=== PATIENT | female | born 1950 | race Caucasian/White ===

== ENCOUNTER 2023-04-25 12:34 | Outpatient (CLI) | payer MEDICARE, SELFPAY ==
[2023-04-25 21:00] LABS: Anion Gap 10 mmol/L (8-16); Blood Urea Nitrogen 25 mg/dL (7-17); Calcium 9.5 mg/dL (8.4-10.2); Carbon Dioxide 24 mmol/L (22-30); Chloride 105 mmol/L (98-107); Estimated Glomerular Filt Rate 49; Glucose 132 mg/dL (65-110); Potassium 4.1 mmol/L (3.4-5.0); Sodium 139 mmol/L (137-145)
[2023-04-25 21:57] LABS: Free T4 Free Thyroxine 1.48 ng/mL (0.78-2.19); Vitamin B12 > 1000.0 pg/mL (239-931); Vitamin D 25 Hydroxy 36.8 ng/mL
== END 2023-04-25 12:35 | disposition home or self-care (01) ==
LOC: ANHWCLAB 12:39
PROVIDERS: PCP Nurse Practitioner Family; Visit Provider Nurse Practitioner Family
DX: E78.5 Hyperlipidemia, unspecified (principal); I10 Essential (primary) hypertension; E11.9 Type 2 diabetes mellitus without complications; G62.9 Polyneuropathy, unspecified; E55.9 Vitamin D deficiency, unspecified
CPT/HCPCS: 36415; 80048; 82306; 82607; 84439; 84443

== ENCOUNTER 2023-05-01 14:44 | Outpatient (NON) | payer MEDICARE, SELFPAY ==
[2023-05-01 19:04] LABS: Creatinine Urine 21.8 mg/dL
[2023-05-01 19:31] LABS: MALB Creatinine Ratio < 27.5 mg/g (0-30); Microalbumin Urine Random < 6.0 mg/L (0-16.7)
== END 2023-05-01 14:45 | disposition home or self-care (01) ==
LOC: ANHWCLAB 14:46
PROVIDERS: PCP Nurse Practitioner Family; Visit Provider Nurse Practitioner Family
DX: E78.5 Hyperlipidemia, unspecified (principal); I10 Essential (primary) hypertension; E11.9 Type 2 diabetes mellitus without complications; G62.9 Polyneuropathy, unspecified
CPT/HCPCS: 82043

== ENCOUNTER 2023-07-10 14:30 | Outpatient (RCR) | payer MEDICARE, SELFPAY ==
[2023-04-25 11:11] VITALS: BMI 31.4
[2023-04-25 12:05] VITALS: BMI 31.4
== END 2023-07-22 10:41 | disposition home or self-care (01) ==
LOC: ANHDMC 14:30
PROVIDERS: PCP Nurse Practitioner Family; Visit Provider Internal Medicine Endocrinology, Diabetes & Metabolism
DX: E11.65 Type 2 diabetes mellitus with hyperglycemia (principal); Z71.89 Other specified counseling; Z71.3 Dietary counseling and surveillance
CPT/HCPCS: 97802; G0108; G0109

== ENCOUNTER 2023-08-14 14:30 | Outpatient (RCR) | payer MEDICARE, SELFPAY ==
[2023-07-30 11:08] VITALS: BMI 29.8
[2023-07-30 11:39] VITALS: BMI 29.8
== END 2023-10-28 10:17 | disposition home or self-care (01) ==
LOC: ANHDMC 14:30
PROVIDERS: PCP Nurse Practitioner Family; Visit Provider Internal Medicine Endocrinology, Diabetes & Metabolism
DX: E11.65 Type 2 diabetes mellitus with hyperglycemia (principal); Z71.3 Dietary counseling and surveillance; Z71.89 Other specified counseling
CPT/HCPCS: 97803; G0109

== ENCOUNTER 2023-11-07 14:38 | Outpatient (RCR) | payer MEDICARE, SELFPAY | END 2024-01-27 10:13 | disposition home or self-care (01) | LOC: ANHDMC 14:38 | PROVIDERS: PCP Nurse Practitioner Family; Visit Provider Internal Medicine Endocrinology, Diabetes & Metabolism | DX: E11.65 Type 2 diabetes mellitus with hyperglycemia (principal); Z71.89 Other specified counseling | CPT/HCPCS: G0109 ==

== ENCOUNTER 2024-09-21 08:28 | Outpatient (CLI) | payer MEDICARE, SELFPAY ==
--- OUTSIDE RECORDS SUMMARY | 2024-09-21 08:44 | XMS_ITS | Clinical Summary ---
Author Organization [facility] Address [address] [place] [address] Care Team Providers Care Work Environment Safety Inspector Name Role Phone Essence Burciaga NP Primary Care Provider [phone] Cely Garsia DO Unavailable [phone] Allergies Active Allergy Reactions Criticality Noted Date Comments Egg Diarrhea Low 09/22/2018 Sulfa (Sulfonamide Antibiotics) Rash Medium 05/2021 Medications glipiZIDE (GLUCOTROL) 5 mg tablet Take 0.5 tablets (2.5 mg total) by mouth 2 (two) times a day before breakfast and lunch Active multivit-min/iron/ folic acid/K (ADULTS MULTIVITAMIN ORAL) Take 1 tablet by mouth daily Active cholecalciferol (VITAMIN D-3) 1,000 unit tablet Take 1 tablet (1,000 Units total) by mouth daily Active linaGLIPtin (TRADJENTA) 5 mg tabletIndications: type 2 diabetes mellitus 1 tablet (5 mg total) daily Active metFORMIN (GLUCOPHAGE) 500 mg tablet Take 1 tablet (500 mg total) by mouth daily with breakfast Active hydroCHLOROthiazid e (HYDRODIURIL) 12.5 mg tablet Take 1 tablet (12.5 mg total) by mouth daily 90 tablet 3 3 Active amLODIPine (NORVASC) 2.5 mg tablet Take 1 tablet (2.5 mg total) by mouth daily 90 tablet 3 3 Active atorvastatin (LIPITOR) 20 mg tablet Take 1 tablet (20 mg total) by mouth daily 90 tablet 3 3 Active carvediloL (COREG) 25 mg tablet Take 1 tablet (25 mg total) by mouth 2 (two) times a day 180 tablet 3 3 Active clopidogreL (PLAVIX) 75 mg tablet Take 1 tablet (75 mg total) by mouth daily 90 tablet 3 3 Active ezetimibe (ZETIA) 10 mg tabletIndications: Mixed hyperlipidemia Take 1 tablet (10 mg total) by mouth daily 90 tablet 3 3 Active losartan (COZAAR) 100 mg tabletIndications: Mixed hyperlipidemia Take 1 tablet (100 mg total) by mouth daily 90 tablet 3 3 Active potassium chloride ER (KLOR-CON) 10 mEq CR tablet Take 1 tablet/capsul e (10 mEq total) by mouth daily 90 tablet/capsu le 3 3 Active icosapent ethyL (VASCEPA) 1 gram capsuleIndications :Mixed hyperlipidemia Take 2 capsules (2 g total) by mouth 2 (two) times a day 360 capsule 3 3 Active Active Problems Problem Noted Date Diagnosed Date Postmenopausal bleeding 09/05/2021 Mixed hyperlipidemia 04/06/2019 Paroxysmal supraventricular tachycardia 08/31/19 18 Coronary artery disease invo lving [place] coronary artery of [place] heart without angina pectoris 01/24/2017 Overview (09/17/2018): Status post PTCA with a stent placement in left anterior descending artery. Essential hypertension 01/21/2017 History of placement of stent in LAD coronary ar phylicia 01/21/2017 Pure hypercholesterolemia 01/21/2017 Type 2 diabetes mellitus wit hout complication, without long-term current use of insulin 01/21/2017 Surgical History Surgery Date Site/Laterality Comments CORONARY ANGIOPLASTY 01/14/2017 CARDIAC CATHETERIZATION 01/14/2017 Medical History Medical History Date Comments Hypertension Hyperlipidemia Coronary artery disease GERD (gastroesophageal reflux disease) Type 2 diabetes mellitus (HCC) Family History Medical History Relation Name Comments Heart attack Father Relation Name Status Comments Father Social History Tobacco Use Types Packs/Day Years Used Date Smoking Tobacco: Never Smokeless Tobacco: Never Alcohol Use Standard Drinks/Week Comments Never 0 (1 standard drink = 0.6 oz pur e alcohol) AUDIT-C Answer Date Recorded Q1: How often do you have a drink containing alcohol? Never 09/05/2021 Q2: How many drinks containi ng alcohol do you have on a typical day when you are drinking? Patient does not drink Q3: How often do you have si x or more drinks on one occasion? Never 09/05/2021 Comments No Sex and Gender Information Value Date Recorded Sex Assigned at Not on file Legal Sex Female 7:21 PM LIBRARY ATTENDANT Gender Identity Not on file Sexual Orientation Not on file Obstetrics History Last Filed Vital Signs Vital Sign Reading Time Taken Comments Blood Pressure 142/80 03/20/2023 2:53 PM LIBRARY ATTENDANT Pulse 75 03/20/2023 2:53 PM LIBRARY ATTENDANT Temperature 36.7 C (98.1 F) 09/07/2021 7:47 AM CDT Respiratory Rate 18 09/07/2021 7:47 AM CDT Oxygen Saturation 97% 03/20/2023 2:53 PM LIBRARY ATTENDANT Inhaled Oxygen Concentration - - Weight 83.9 kg (185 lb) 03/20/2023 2:53 PM LIBRARY ATTENDANT Height 162.6 cm (5' 4) 03/20/2023 2:53 PM LIBRARY ATTENDANT Body Mass Index 31.76 03/20/2023 2:53 PM LIBRARY ATTENDANT Plan of Treatment Health Maintenance Due Date Last Done Comments Breast Cancer Screening-Mammogram 1952 Colon Cancer Screening-Colonoscopy 1950 Depression Screening 1952 Hepatitis C Screening 1952 Dilated Eye Exam 1952 Foot Exam 1952 Hepatitis B Screening 1970 Well Visit 65+ 2017 Osteoporosis Screening-Bone Density Scan 05/07/2019 05/07/2017 Zoster Vaccine (2 of 2) 03/21/2021 01/24/2021 Fall Risk Assessment 09/07/2022 09/07/2021 Albumin Creatinine Ratio, Urine 12/11/2022 Hemoglobin A1C 09/11/2023 03/13/2023, 05/24, 12/11/2021, Additional history exists Covid-19 Vaccine (2023-2 5 season) 2023 05/01/2021, 06/24/2020, 05/27/2020 Lipid Panel 03/13/2024 03/13/2023, 05/24, 12/11/2021, Additional history exists eGFR 03/13/2024 03/13/2023, 06/21, 06/18/2022, Additional history exists Influenza Vaccine (Season Ended) 2024 02/26/2022, 03/22/2020, 03/22/2020, Additional history exists DTaP/Tdap/Td Vaccine (2 - Td or Tdap) 02/26/2026 02/27/2016 Pneumococcal vaccine 65+ Completed 05/07/2017, 10/2015 Medical Devices Implanted Type Area Middleware Consultant Device Identifier Shelf Expiration Date Model / Serial / Lot Stent N/A: Heart Procedures Procedure Name Priority Date/Time Associated Diagnosis Comments EGFR Routine 03/13/2023 9:02 AM LIBRARY ATTENDANT Essential hypertension HEMOGLOBIN A1C Routine 03/13/2023 9:02 AM LIBRARY ATTENDANT Type 2 diabetes mellitus without complication, without long-term current use of insulin (HCC) LIPID PANEL Routine 03/13/2023 9:02 AM LIBRARY ATTENDANT Mixed hyperlipidemia ALBUMIN CREATININE RATIO, URINE Routine 12/11/2021 9:12 AM CDT from Last 3 Months or Most Recently Relevant to Health Maintenance Results * eGFR (03/13/2023 9:02 AM LIBRARY ATTENDANT) eGFR 49 mL/min/1. 73 m2 JIMENEZ WEBSTER Comment: Interpretive Data Reference Interval Normal >/= 90 mL/min/1.73m2 Mildly decreased* 60 - 89 mL/min/1.73m2 Mildly to moderately decreased 45 - 59 mL/min/1.73m2 Moderately to severely decreased 30 - 44 mL/min/1.73m2 Severely decreased 15 - 29 mL/min/1.73m2 Kidney Failure < 15 mL/min/1.73m2 *Relative to young adult level Estimated glomerular filtration rate is determined by the 2020 CKD-EPI equation recommended by the National Kidney Foundation (A Unifying Approach to GFR Estimation: Recommendations of the NKF-ASK Task Force on Reassessing the Inclusion of Race in Diagnosing Kidney Disease, JASN 2020). The CKD-EPI equation should not be used for patients with unstable renal function and has not been validated in children and those over 70. Current interpretive data was last reviewed 2021. Testing performed by: [address] [address] Blood 03/13/2023 9:02 AM LIBRARY ATTENDANT 03/13/2023 9:29 AM LIBRARY ATTENDANT Ambrocio Martínez MD LAB BLOOD ORDERABLES Fi nal Result Performing Organization Address [facility] Co de Phone Number [address] [place] [address] * (ABNORMAL) Hemoglobin A1c (03/13/2023 9:02 AM LIBRARY ATTENDANT) Hgb A1C 10.3(H) 4.0 - 5.6 % JIMENEZ Comment:Testing performed by : [address] [address] Estimated Average Glucose 249 mg/dL JIMENEZ Comment: The ADA recommends reporting an estimated Average Glucose (eAG) with all Hemoglobin A1c results using the equation derived from a study of 507 normal and diabetic adults. Minority populations were underrepresented and children were not included. (Diabetes Care 31:8569-0890, 2008). The eAG is not equivalent to a fasting glucose. Testing performed by: [address] [address] Blood 03/13/2023 9:02 AM LIBRARY ATTENDANT 03/13/2023 9:29 AM LIBRARY ATTENDANT Ambrocio Martínez MD LAB BLOOD ORDERABLES Fi nal Result Performing Organization Address [facility] Co de Phone Number [facility] [address] [facility] [place] [address] * (ABNORMAL) Lipid panel (03/13/2023 9:02 AM LIBRARY ATTENDANT) Pathologist [facility] [place] Cholesterol 132 30 - 199 mg/dL JIMENEZ Comment: Interpretive Data Ages < or = 19 years Acceptable: <170 mg/dL Borderline high: 170-199 mg/dL High: >or= 200 mg/dL Ages > or = 20 years Desirable: <200 mg/dL Borderline high: 200-239 mg/dL High: >or= 240 mg/dL Literature References: 1. Expert Panel on Integrated Guidelines for Cardiovascular Health and Risk Reduction in Children and Adolescents. Pediatrics 2011;128:S213 2. NCEP Expert Panel. Circulation 2004;110:227 Current Interpretive Data was last revised on 2017. Testing performed by: [address] [address] Triglycerides 382(H) <=149 mg/dL JIMENEZ Comment: Interpretive Data Ages < or = 9 years Acceptable: <75 mg/dL Borderline high: 75-99 mg/dL High: >or= 100 mg/dL Ages 10 to 20 years Acceptable: <90 mg/dL Borderline high: 90-129 mg/dL High: >or= 130 mg/dL Ages > or = 20 years Desirable: <150 mg/dL Borderline high: 150-199 mg/dL High: 200-499 mg/dL Very high: >or= 499 mg/dL Literature References: 1. Expert Panel on Integrated Guidelines for Cardiovascular Health and Risk Reduction in Children and Adolescents. Pediatrics 2011;128:S213 2. NCEP Expert Panel. Circulation 2004;110:227 Current Interpretive Data was last revised on 2017. Testing performed by: [address] [address] HDL 37(L) >=40 mg/dL JIMENEZ Comment: Interpretive Data Ages < or = 19 years Acceptable: >45 mg/dL Borderline low: 40-45 mg/dL Low: <40 mg/dL Ages > or = 20 years Desirable: >or= 60 mg/dL Low: <40 mg/dL Literature References: 1. Expert Panel on Integrated Guidelines for Cardiovascular Health and Risk Reduction in Children and Adolescents. Pediatrics 2011;128:S213 2. NCEP Expert Panel. Circulation 2004;110:227 Current Interpretive Data was last revised on 2017. Testing performed by: [address] [address] LDL, calculated 19 <=129 mg/dL JIMENEZ Comment: Interpretive Data Ages < or = 19 years Acceptable: <110 mg/dL Borderline high: 110-129 mg/dL High: >or= 130 mg/dL Ages > or = 20 years Optimal: <100 mg/dL Near optimal: 100-129 mg/dL Borderline high: 130-159 mg/dL High: >160 mg/dL Literature References: 1. Expert Panel on Integrated Guidelines for Cardiovascular Health and Risk Reduction in Children and Adolescents. Pediatrics 2011;128:S213 2. NCEP Expert Panel. Circulation 2004;110:227 Current Interpretive Data was last revised on 2017. Testing performed by: [address] [address] Non-HDL Cholesterol 95 mg/dL JIMENEZ Comment: Interpretive Data Ages < or = 19 years Acceptable: <120 mg/dL Borderline high: 120-144 mg/dL High: >145 mg/dL Ages > or = 20 years When triglycerides are >200 mg/dL, Non-HDL cholesterol is a secondary target of therapy with treatment goals that are 30 mg/dL greater than the LDL cholesterol target. Literature References: 1. Expert Panel on Integrated Guidelines for Cardiovascular Health and Risk Reduction in Children and Adolescents. Pediatrics 2011;128:S213 2. NCEP Expert Panel. Circulation 2004;110:227 Current Interpretive Data was last revised on 2017. Testing performed by: [address] [address] Chol/HDL ratio 4 JIMENEZ Comment:Testing performed by : [address] [address] Blood 03/13/2023 9:02 AM LIBRARY ATTENDANT 03/13/2023 9:29 AM LIBRARY ATTENDANT Narrative JIMENEZ - 03/13/2023 10:18 AM LIBRARY ATTENDANT Has the patient been fasting for 8 hours or more?->Yes us Ambrocio Martínez MD LAB BLOOD ORDERABLES Fi nal Result JIMENEZ [address] [facility] [place] [address] * Albumin Creatinine Ratio, Urine (12/11/2021 9:12 AM CDT) Albumin Ur <12.0 mg/L JIMENEZ WEBSTER Comment: Interpretive Data No reference range established. Current interpretive data was last revised 2018. Testing performed by: [address] [address] Creatinine Ur 62.9 mg/dL JIMENEZ WEBSTER Comment: Interpretive Data No reference range established. Current interpretive data was last revised 2018. Testing performed by: [address] [address] Albumin Creatinine Ratio, Ur <19 1 - 29 mg/g JIMEENZ WEBSTER Comment:Testing performed by : [address] [address] Urine 12/11/2021 9:12 AM CDT 12/11/2021 9:22 AM CDT Ava Landaverde APRN LAB URINE ORDERABLES Joanne dey Result [facility] [address] [facility] [place] [address] from Last 3 Months or Most Recently Relevant to Health Maintenance Insurance [employer] [facility] MEDICARE ADVANTAGE [employer] Advance Directives For more information, please contact: [phone] * Full Code (Latest Code Status on File) Date Activated Date Inactivated Comments 09/05/2021 5:51 PM 09/07/2021 1:11 PM Healthcare Agents on File Name Relationship Healthcare Agent Relationshi p Communication Gerry Hoover-Kam Spouse Health Care Agent Care Teams Work Environment Safety Inspector Relationship Specialty Start Date End Date Essence Burciaga NP [place], [place] [id number] PCP - General Nurse Practitioner 08/19/20 Cely Garsia DO [facility] [place] [address] Consulting Physician Obstetrics and Gynecology 09/07/21
--- OUTSIDE RECORDS SUMMARY | 2024-09-21 08:44 | XMS_ITS | Data Portability ---
Author Organization [facility] SARIKA [place] Address [address] [place] [address] Care Team Providers Care Buttermilk Drier Operator Name Role Phone NEVAEH CROSS Primary Care Provider [phone] Assessment Encounter Date Assessment Date Assessment LastModified by Organization Details LastModified Time 01/07/2018 01/07/2018 get your flu shot at [facility] Not available 01/07/2018 10:17:38 Plan of Treatment Reminders Order Date Submit Date Provider Last Modified By Organization Details Last Modified Time Details Appointments None recorded. Lab HbA1c (hemoglobi n A1c), blood 2019 020 PAGE Not available 0 13:42:29 noninvasiv e colorectal cancer DNA + occult blood screening, stool 2018 019 [facility] (Cologuard Orders Only), [address], [place], [address], 9 11:40:20 HbA1c (hemoglobi n A1c), blood 2018 019 [facility] Not available 9 13:05:12 lipid panel, serum 2018 019 PAGE Not available 9 14:04:46 BMP, serum or plasma 2018 019 [facility] Not available 9 13:05:13 TSH, serum or plasma 2017 018 PAGE Not available 8 12:19:27 HbA1c (hemoglobi n A1c), blood 2017 018 PAGE Not available 8 17:35:49 CMP, serum or plasma 2017 018 lenglema Not available 8 12:23:18 Referral None recorded. Procedures None recorded. Surgeries None recorded. Imaging MAMMO, screening, digital, bilateral 2019 020 [facility] Not available 0 19:52:37 MAMMO, screening, bilateral 2018 019 [facility] Not available 9 13:54:02 MAMMO, screening, bilateral 2017 018 ttonnies Not available 8 17:45:59 DEXA 2017 018 ttonnies Not available 8 18:10:20 Medication Orders Glucophage XR 500 mg tablet,ext ended release 2019 020 [facility], [address] [place] [address], [address], 0 12:50:29 glipizide ER 5 mg 24 hr tablet,ext ended release 2018 019 [facility], [address] [place] [address], [address], 0 11:04:28 Januvia 100 mg tablet 2018 019 [facility], [address] [place] [address], [address], 9 10:47:51 carvedilol 25 mg tablet 2018 019 [place] [address], [address] [place] [address], [address], 9 15:22:55 capsaicin 0.1 % topical cream 2017 018 [facility] Not available 9 10:47:37 Glucophage XR 500 mg tablet,ext ended release 2017 018 [facility], [address] [facility], [place], [address], 8 10:20:22 glipizide 10 mg tablet 2017 018 magne1 [facility] 1418, [address], [address], 9 15:29:12 Glucophage XR 500 mg tablet,ext ended release 2017 018 INTERFACE [facility] 1418, [address], [address], 8 11:32:19 OneTouch Ultra Test strips 2017 018 [facility]18, [address], [address], 8 11:32:18 atorvastat in 80 mg tablet 2017 018 [facility] [address], [address], 0 11:04:02 Patient TargetsNo targets recorded. Patient Instructions Encounter Date Encounter Id Patient Instructions Last Modified By Organization Details Last Modified Time 10/12/2019 [id number] not a requiremen t to take a probiotic-- not having effect of metformin Not available 10/12/2019 12:43:39 Reason for Referral None Reported. Results Created Date Observation Date Name Description Value Unit Range Abnormal Flag Note LastModifiedBy Organization Detail LastModifiedTime Result Notes None recorded. Problems Name Problem SNOMED Code Status Onset Date Resolution Date Notes Provider Name and Address Organization Details Recorded Time Neuropat hy due to diabetes mellitus 251321569 Active 2014 Location : None;Sev erity: Moderate ;Progres s: Stable;A dded By: Nevaeh Cross;Add to Current Problems : YES Not Available [facility] 7 09:52:12 Pure hypercho lesterol emia 700027153 Active 2015 Location : None;Sev erity: Moderate ;Progres s: Stable;A dded By: Abelardo Suggs ;Add to Current Problems : YES Not Available [facility] 7 09:52:12 Type 2 diabetes mellitus without complica tion 287486964 Active 2014 Location : None;Sev erity: Moderate ;Progres s: Stable;A dded By: Archana Can;Add to Current Problems : YES Not Available [facility] 7 09:52:12 [facility] 93079905 Active 2014 Location : None;Sev erity: Moderate ;Progres s: Stable;A dded By: Archana Can;Add to Current Problems : YES Not Available [facility] 7 09:52:12 Thyroid disorder screenin g Completed 201506/27/2015 Location : None;Sev erity: Moderate ;Progres s: Stable;A dded By: Kiana Alfaro;Add to Current Problems : NO Not Available [facility] 7 09:52:12 Screenin g for disorder Completed 201501/29/2017 Location : None;Sev erity: Moderate ;Progres s: Stable;A dded By: Kiana Alfaro;Add to Current Problems : NO Nevaeh Cross MD Attn: [place], [address] , [facility] 7 17:06:23 Hyperlip idemia screenin g Active 2015 Location : None;Sev erity: Moderate ;Progres s: Stable;A dded By: Shruthi Roe i;Araceli dd to Current Problems : YES Not Available [facility] 7 09:52:12 Long-ter m drug therapy Active 2015 Location : None;Sev erity: Moderate ;Progres s: Stable;A dded By: Shruthi Roe i;A dd to Current Problems : NO Not Available [facility] 7 09:52:12 Coronary atherosc lerosis 936350857 Active 2016 with stent LAD Nevaeh Cross MD Attn: Accounting ,[address] [place], [address] , [facility] 7 17:06:48 Problem Notes None recorded. Procedures Surgical History Date Name Laterality Status Provider Name and Address Organization Details Recorded Time 7 Angioplasty With Stent completed Nevaeh Cross MD Attn: Accounting,[address] [place], [address], [facility] 01/29/2017 17:05:18 9 biopsy of breast completed Nevaeh Cross MD Attn: Accounting, [address] [place], [address], [facility] 03/16/2019 11:14:17 Imaging Results None recorded. Procedure Notes None recorded. Medical Equipment None Reported. Allergies Allergen ID Allergen Name Allergen Category Reaction Reaction Severity Criticality Documentation Date Start Date Code Code System Note Provider Name and Address Organization Details Recorded Time 55227 egg extract food,medi cation Not available Not available Not available 02/27/2016 25169 15 RxNorm Nevaeh Cross MD Attn: [employer],[address] [facility], [place], [address], [facility] 6 11:47:40 Medications Name Sig Start Date Stop Date Status Note LastModified by Organization Details LastModified Time clopidogre l 75 mg tabs 10/11 completed Not Available Not Available Not Available repatha sureclick 140 mg/ml soaj active Not Available Not Available Not Available losartan potassium 100 mg tabs 10/11 completed Not Available Not Available Not Available glipizide xl 5 mg tb24 one daily 11/14 completed Not Available Not Available Not Available vascepa 1 gm caps 10/11 completed Not Available Not Available Not Available metformin hydrochlor trav er 500 mg tb24 10/11 completed Not Available Not Available Not Available atorvastat in calcium 80 mg tabs 10/11 completed Not Available Not Available Not Available ezetimibe 10 mg tabs 10/11 completed Not Available Not Available Not Available carvedilol 25 mg tabs 10/11 completed Not Available Not Available Not Available pioglitazo ne 15 mg tablet Take 1 tablet(s ) by mouth daily 11/13 completed new start;R xNorm: 598473; Allow Substit ution: True Not Available Not Available Not Available atorvastat in 40 mg tablet Take 1 tablet every day by oral route. active Not Available Not Available No t Available metformin 500 mg tablet 1 tablet by mouth BiD 04/28 completed RxNorm: 738117; Allow Substit ution: True Not Available Not Available Not Available atorvastat in 80 mg tablet TAKE 1 TABLET BY MOUTH ONCE DAILY 10/11 completed Not Available Not Available Not Available carvedilol 25 mg tablet Take 1 tablet twice a day by oral route. active Not Available Not Available No t Available carvedilol 12.5 mg tablet Take 1 tab po bid 09/18 completed Not Available Not Available Not Available metoprolol succinate ER 50 mg tablet,ext ended release 24 hr 01/07 completed Not Available Not Available Not Available glipizide 10 mg tablet TAKE 1 TABLET BY MOUTH BEFORE BREAKFAS T 09/18 completed Not Available Not Available Not Available glipizide ER 5 mg tablet, extended release 24 hr Take 1 tablet by mouth once daily 2020 active Not Available Not Available Not Avai lable metformin 850 mg tablet Take 1 tablet(s ) by mouth daily 07/09 completed dose change- - not needed - make change in profile ;RxNorm : 978776; Allow Substit ution: True Not Available Not Available Not Available amlodipine 2.5 mg tablet 01/07 completed Not Available Not Available Not Available clopidogre l 75 mg tablet Take 1 tablet every day by oral route in the morning. active Not Available Not Available No t Available amlodipine 5 mg tablet 01/07 completed Not Available Not Available Not Available aspirin 81 mg tablet,del ayed release Take one tablet PO daily 2014 active RxNorm: 040601; Allow Substit ution: True Not Available Not Available Not Available losartan 100 mg-hydroch lorothiazi de 25 mg tablet Take 1 tablet(s ) by mouth daily 05/07 completed Not Available Not Available Not Available lancets check glucose daily and as needed 10/01 completed Allow Substit ution: True Not Available Not Available Not Available OneTouch Ultra Test strips To test bs once daily 2017 active Not Available Not Available Not Avai lable Glucophage XR 500 mg tablet,ext ended release 1 tab in am and 2 tabs by mouth daily in the evening 2019 active Not Available Not Available Not Avai lable Blood Glucose Test Strips check blood glucose daily and as needed 05/05 completed Allow Substit ution: True Not Available Not Available Not Available hydrochlor othiazide 25 mg tablet 01/07 completed Not Available Not Available Not Available pioglitazo ne 30 mg tablet Take 1 tablet every day by oral route. 05/07 completed Not Available Not Available Not Available losartan 100 mg tablet Take 1 tab po daily active Not Available Not Available No t Available ezetimibe 10 mg tablet one daily active Not Available Not Available No t Available metformin ER 1,000 mg tablet,ext ended release 24hr (osmotic) Take 1 tablet every day by oral route. 11/13 completed Not Available Not Available Not Available capsaicin 0.1 % topical cream Apply 1 applicat ion 3 times a day by topical route as needed. 03/16 completed Not Available Not Available Not Available Januvia 100 mg tablet Take 1 tablet every day by oral route. 03/16 completed Not Available Not Available Not Available glipizide ER 5 mg 24 hr tablet,ext ended release Take 1 tablet(s ) every day by oral route. 10/11 completed Not Available Not Available Not Available OneTouch Delica Lancets 33 gauge active Not Available Not Available Not Available Brilinta 90 mg tablet Take 1 tab po bid 09/18 completed Not Available Not Available Not Available Vascepa 1 gram capsule active Not Available Not Available Not Available Repatha SureClick 140 mg/mL subcutaneo us pen injector active Not Available Not Available Not Available OneTouch Ultra Blue Test Strip active Not Available Not Available N ot Available Vitals Date Recorded Body height Body mass index (BMI) Body weight Oxygen saturation Oxygen saturation in Arterial blood by Pulse oximetry Heart rate Systolic blood pressure Diastolic blood pressure Provider Name and Address Organization Details Last Updated DateTime 8 160.02 cm 28.4 kg/m2 72865.5 3 g 97 % 97 % 74 /min 130 mm[Hg] 72 mm[Hg] Sabi waggoner [facility] 8 11:01:51 Date Recorded Body height Oxygen saturation Oxygen saturation in Arterial blood by Pulse oximetry Heart rate Body mass index (BMI) Body weight Systolic blood pressure Diastolic blood pressure Provider Name and Address Organization Details Last Updated DateTime 9 160.02 cm 96 % 96 % 72 /min 32.1 kg/m2 54601.2 2 g 152 mm[Hg] 80 mm[Hg] Bertha Fosson [facility] 9 15:00:48 Date Recorded Body height Body mass index (BMI) Body weight Body temperature Oxygen saturation Oxygen saturation in Arterial blood by Pulse oximetry Heart rate Systolic blood pressure Diastolic blood pressure Provider Name and Address Organization Details Last Updated DateTime 8 160.02 cm 31.3 kg/m2 99452.0 6 g 98.5 [degF] 97 % 97 % 82 /min 136 mm[Hg] 86 mm[Hg] Shruthi Amor ma [facility] 8 09:42:26 Date Recorded Body height Body mass index (BMI) Body weight Body temperature Oxygen saturation Oxygen saturation in Arterial blood by Pulse oximetry Heart rate Systolic blood pressure Diastolic blood pressure Provider Name and Address Organization Details Last Updated DateTime 9 160.02 cm 31.4 kg/m2 83371.6 5 g 98.6 [degF] 94 % 94 % 74 /min 136 mm[Hg] 70 mm[Hg] Finn Echeverria MA [facility] 9 10:47:07 Social History Question Answer Notes LastModified by Organizat ion Details LastModified Time Tobacco Smoking Status Never Smoker Pham maharaj [facility] 02/27/2016 11:33:00 What Was The Date Of Your Most Recent Tobacco Screening? 01/07/2018 Information n ot available 11/13/2018 Sex: Unknown Functional Status None recorded. Mental Status None recorded. Family History Relationship Description Onset Age of this Age Resolved Age Notes LastModified by Organization Details LastModified Time Father Diabetes mellitus hreedma Not available 2015 11:33:09 Father Aortic aneurysm ssadlowskima Not available 09:16:30 Father Hypertensive disorder ssadlowskima Not available 09:16:37 Mother Hypertensive disorder ssadlowskima Not available 09:16:49 Paternal Grandfather Diabetes mellitus ssadlowskima Not available 09:16:57 Paternal Grandmother Diabetes mellitus ssadlowskima Not available 09:17:05 Maternal Grandfather Diabetes mellitus ssadlowskima Not available 09:17:12 Maternal Grandmother Monitoring of pacemaker ssadlowskima Not available 01/18/2017 09:17:29 Maternal Grandmother Diabetes mellitus ssadlowskima Not available 09:17:38 Medical History Condition Response High Blood Pressure Y High Cholesterol Y Diabetes Y Heart Disease Y Gynecological History Statement/Question Response Menses Monthly N Obstetrics History GPAL:G 0 P 0 0 0 0 Immunizations Vaccine Type Date Status Note Provider Nam e and Address Organization Details Recorded Time Tdap 6 completed Not Available [facility] 05/09/2019 02:32:58 Pneumococcal conjugate PCV 13 6 completed Not Available [facility] 05/09/2019 02:45:28 pneumococcal polysaccharide PPV23 8 completed Not Available [facility] 05/09/2019 02:42:30 Past Encounters Encounter ID Performer Location Encounter Start Date Encounter Closed Date Diagnosis/Indication Diagnosis SNOMED-CT Code Diagnosis ICD10 Code Diagnosis Note [id number] Nevaeh Cross MD [facility] [address] [facility] [place] [address] 02/23/2016 10:40:47 02/28/2016 12:11:34 Essential hypertension 64869053 I10 Hyperlipidemia 75428693 E78.5 Diabetes mellitus 847647 09 E11.9 [id number] Nevaeh Cross MD [facility] [address] [place] [address] 02/27/2016 11:13:42 03/01/2016 10:32:23 Type 2 diabetes mellitus 19928017 E11.42 dose change and formulatio n change of metformin- - diarrhea before Administra tion of pneumococcal vaccine 84383698 Z23 Administra tion of diphtheria, pertussis, and tetanus vaccine 206464537 Z23 Hypercholesterolemia 136 11446 E78.2 start atorvastat in for lipids to goal for DM. Stop Butter adn chavira [id number] Nevaeh Cross MD [facility] [address] [place] [address] 07/04/2016 09:41:10 07/04/2016 18:40:15 Hyperlipidemia 22853904 E78.5 Long-term drug therapy 847018440 Z79.899 Diabetes mellitus 024469 09 E11.9 [id number] Nevahe Cross MD [facility] [address] [place] [address] 07/09/2016 12:02:04 07/09/2016 14:08:37 Type 2 diabetes mellitus without complication 041495805 E11.9 advise to get work out or accountabi lity partner for exercise and diet Type 2 deisy betes mellitus 32965660 E11.42 increase the Actos to 30 mg a day Essential hypertension 88944380 I10 Hypercholesterolemia 136 [address]69[address] E78.2 increase the atorvastat in for lipids to goal for DM. Stop Butter and chavira [id number] Nevaeh Cross MD [facility] [address] [place] [address] 11/13/2016 09:15:27 11/13/2016 16:54:16 Type 2 diabetes mellitus 18893183 E11.42 Hypercholesterolemia 136 47874 E78.2 Administra tion of viral vaccine 12323187 Z23 Screening for malignant neoplasm of breast 098697572 Z12.31 Gynecologi c examination 73764235 Z01.041 [id number] Nevaeh Cross MD [facility] [address] [place] [address] 11/09/2016 09:48:55 11/09/2016 14:35:41 Type 2 diabetes mellitus without complication 134706630 E11.9 [id number] Nevaeh Cross MD [facility] [address] [place] [address] 05/07/2017 10:46:40 05/07/2017 17:45:59 Type 2 diabetes mellitus without complication 718316933 E11.9 cont with regular exercise Essential hypertension 79608573 I10 Hypercholesterolemia 136 99915 E78.2 Screening for malignant neoplasm of colon 836743145 Z12.11 Screening for malignant neoplasm of breast 262723384 Z12.39 Menopause present 584285 006 N95.1 Administra tion of pneumococcal vaccine 25732533 Z23 update-- I advised Flu shot but since we are currently out of supply-- to check with cardiologi st for this Type 2 deisy betes mellitus 02895655 E11.42 no med change and cont exercise as outlined by patient [id number] Nevaeh Cross MD [facility] [address] [facility] [place] [address] 01/07/2018 09:36:47 01/08/2018 09:06:39 Type 2 diabetes mellitus without complication 393629247 E11.9 cont with dietary changes and increase the exercise and weight loss Essential hypertension 05588044 I10 BP is doing fine-- cont low salt and to lose weight Diabetic p eripheral neuropathy 611390779 E11.40 call if no effective of trial of capsaiscin to order a trial of lidocaine cream for this complaint- - you wish to avoid oral agents for management however report limitation in activity related to the foot neuropathy burning sensation. Order the diabetic shoes Weight gain 5342452 R63. 5 Administra tion of viral vaccine 97489071 Z23 discussed and will check with Racheal [id number] Nevaeh Cross MD [facility] [address] [facility] [place] [address] 09/18/2018 14:33:21 09/18/2018 15:48:45 Type 2 diabetes mellitus without complication 692579717 E11.9 cont with dietary changes and increase the exercise and resetablis h weight loss-- decrease the GLIPIZIDE and start taking JANUVIA Essential hypertension 70914131 I10 BP is doing fine-- cont low salt and to lose weight-- dose increase of the carvedilol Diabetic p eripheral neuropathy 282917718 E11.40 call if no effective of trial of capsaiscin to order a trial of lidocaine cream for this complaint- - you wish to avoid oral agents for management however report limitation in activity related to the foot neuropathy burning sensation. Order the diabetic shoes [id number] Nevaeh Cross MD [facility] [address] [facility] [place] [address] 03/16/2019 10:24:49 03/16/2019 13:54:02 Essential hypertension 23720928 I10 BP is doing fine-- cont low salt and to lose weight Type 2 deisy betes mellitus without complication 608438887 E11.9 cont with dietary changes and increase the exercise and re- establish weight loss-- Neuropathy due to diabetes mellitus 806309325 E11.40 Screening for malignant neoplasm of breast 471754054 Z12.31 you are given an order for this test Screening for malignant neoplasm of colon 995921285 Z12.11 Administra tion of influenza vaccine 96031408 Z23 we discussed trying to get special order for the preservati ve free FLu shot given egg allergy [id number] Nevaeh Cross MD [facility] [address] [facility] [place] [address] 10/12/2019 10:53:55 10/12/2019 19:52:37 Type 2 diabetes mellitus without complication 397217257 E11.9 will increase METORMIN ER dose to 1 in am and 2 in evening Pure hypercholesterolemia 159274890 E78.[address] Clements with med adjustment adn starting REPATHA per his note Screening mammography 24 719747 Z12.31 ordered -- and testing strongly encouraged Screening for malignant neoplasm of colon 938193661 Z12.11 has the fecal kit kit and needs to complete this test. Note that if concern for NDMA contaminat ion-- then GI associatio n is the area of concern Health Concerns Section Related Observation LastModified by Organization Detai ls LastModified Time None Recorded Concern Status LastModified by Organization Details LastModified Time None Recorded Advance Directives Directive None Recorded Payers Encounter Date Sequence Insurance Name Policy Number Policy Stanley Covered Member ID Stanley Member ID Guarantor Name 05/07/2017 2 [employer] - DOS PRIOR TO 20 - [facility] BENEFITS PLAN [id number] Apple Orosco [place] [id number] Apple Humphrey 05/07/2017 1 [place] [employer] [place] [id number] Apple Humphrey 01/07/2018 2 [employer] - DOS PRIOR TO 20 - [facility] BENEFITS PLAN [id number] Apple Orosco [place] [id number] Apple Reyesus 01/07/2018 1 [place] [id number] Apple Reyesus 09/18/2018 1 [facility] (MEDICARE REPLACEMENT/A DVANTAGE - PPO) [id number] Apple Reyesus [id number] Apple Reyesus 03/16/2019 1 [facility] (MEDICARE REPLACEMENT/A DVANTAGE - PPO) [id number] Apple Reyesus [id number] Apple Reyesus 10/12/2019 1 [facility] (MEDICARE REPLACEMENT/A DVANTAGE - PPO) [id number] Apple Reyesus [id number] Apple Reyesus Notes Date Note Type Note Provider Name and Address Organization Details Recorded Time 8 text/html Diabetes F/UReported bypatient.Labs:last A1C result: 6.8; 05/04/17 Context:seeing eye doctor regularly; checking feet regularly; taking aspirin daily; not missing doses of medications Associated Symptoms:no dizziness; no confusion; no increased thirst; no increased appetite; no increased urination;weight loss (9 lbs);headaches;numbness of feet; headaches may be sinus related. Nevaeh Cross MD Attn: Accounting,[address] [place] [address], [address], [facility] 05/07/2017 11:41:09 8 text/html Diabetes F/UReported bypatient.Labs:last A1C result: 7.1 (01/01/18) Context:seeing eye doctor regularly; checking feet regularly; taking aspirin daily; not missing doses of medications; Does not check glucose. Avoids sugars, monitors carbs. Exercises infrequently. Associated Symptoms:no dizziness; no sweats; no headaches; no confusion; no increased thirst; no increased urination; no blurred vision;increased appetite;numbness of feet(neuropathy)Hypertensio n F/UReported bypatient.Associated Symptoms:no dizziness; no lightheadedness; no chest pain; no shortness of breath;palpitations(infrequ ent);edema(slight with sitting for too long); Has an appt. with Dr. Clements in Feb. Lifestyle:limiting/avoiding salt Medications:taking medications as directed; no side effects from medication Nevaeh Cross MD Attn: [facility],[address] [place], [address], [facility] 01/28/2018 13:52:05 9 text/html Diabetes F/UReported bypatient.Review finger sticks:on 09/16/18 Labs:last A1C result: 7.1 Context:seeing eye doctor regularly; checking feet regularly Associated Symptoms:no dizziness; no sweats; no headaches; no confusion; no increased thirst; no increased appetite; no increased urination;weight gain (20 lbs);numbness of feet(neuropathy)Hypertensio n F/UReported bypatient.Associated Symptoms:no dizziness; no lightheadedness; no chest pain; no shortness of breath; no palpitations; no edema; no calf pain with exertion Lifestyle:limiting/avoiding salt;not exercising regularly Medications:taking medications as directed; no side effects from medication Nevaeh Cross MD Attn: Accounting,[address] [place], [address], [facility] 09/18/2018 15:33:38 9 text/html Diabetes F/UReported bypatient.Labs:last A1C result: 6.9 on 03/12/19 Context:seeing eye doctor regularly; checking feet regularly Associated Symptoms:no weight gain; no weight loss; no dizziness; no sweats; no headaches; no confusion; no increased thirst; no increased urination; no blurred vision; no calluses on feet;increased appetite;numbness of feetNotes:the neuropathy is the same-- still toleratingHypertension F/UReported bypatient.Associated Symptoms:no dizziness; no lightheadedness; no chest pain; no shortness of breath; no edema; no calf pain with exertion;palpitations(occas ional n) Lifestyle:limiting/avoiding salt Medications:taking medications as directed Nevaeh Cross MD Attn: [facility],[address] [place], [address], [facility] 03/16/2019 11:21:58 0 text/html Diabetes F/UReported bypatient.Context:seeing eye doctor regularly; checking feet regularly Associated Symptoms:no weight gain; no weight loss; no dizziness; no sweats; no headaches; no confusion; no increased thirst; no increased appetite; no increased urination; no blurred vision; no calluses on feet;numbness of feetHypertension F/UReported bypatient.Associated Symptoms:no dizziness; no lightheadedness; no chest pain; no shortness of breath; no palpitations; no edema; no calf pain with exertion; muscle aches from atoravastin so shipping clerk crating changed dosage Lifestyle:regular exercise; limiting/avoiding salt Medications:taking medications as directed;side effects from medicationsNotes:has SE with atorvastatin and dose decreased by Dr Clements and started on REPATHA-- see OV 10/09/2019 Nevaeh Cross MD Attn: Accounting,[address] [place] [address], [id number], [facility] 10/12/2019 12:51:27 OBGyn Episode No OBEpisode recorded.
--- OUTSIDE RECORDS SUMMARY | 2024-09-21 08:44 | XMS_ITS | Clinical Summary ---
Author Organization [facility] Care Team Providers Care Electrical Wirer Name Role Phone Unavailable Primary Care Provider Unavailabl e Social History Tobacco Use Types Packs/Day Years Used Date Smoking Tobacco: Never Assessed Comments Unknown Sex and Gender Information Value Date Recorded Sex Assigned at Not on file Legal Sex Female 3:47 PM SURGERY AID Gender Identity Not on file Sexual Orientation Not on file Plan of Treatment Health Maintenance Due Date Last Done Comments DEXA Bone Density 1950 Hepatitis C Virus (HCV) Screening 1950 TdaP Immunization 1950 Colonoscopy 1997 Colorectal Cancer Screening 1997 Cologuard 2002 Immunochemical Fecal Occult Blood 2002 Mammogram 2002 Pneumococcal Immunization (5 0+ years) (1 of 1 - PCV) 2002 Zoster Immunization (1 of 2) 2002 Influenza Immunization (#1) 2023 SARS-COV-2 Immunization ( season) 2023 Respiratory Syncytial Virus (RSV) Immunization (Adult) (1 - 1-dose 75+ series) 2027 Hepatitis B Immunization Aged Out No longer eligible based on patient's age to complete this topic Meningococcal Immunization (ACWY) Aged Out No longer eligible based on patient's age to complete this topic Rotavirus Immunization Aged Out No lo nger eligible based on patient's age to complete this topic
--- OUTSIDE RECORDS SUMMARY | 2024-09-21 08:44 | XMS_ITS | Referral Summary ---
Author Organization [facility] Address [address] [place] [address] Care Team Providers Care Dry Heat Cabinet Attendant Name Role Phone Essence Burciaga NP Primary Care Provider [phone] Cely Garsia DO Unavailable [phone] Allergies Active Allergy Reactions Criticality Noted Date [...] 08/31/19 18 Coronary artery disease invo lving emmonak coronary artery of emmonak heart without angina pectoris 01/24/2017 Overview (09/17/2018): Status post PTCA with a stent placement in left anterior descending artery. Essential hypertension 01/21/2017 History of placement of stent in LAD coronary ar phylicia 01/21/2017 Pure hypercholesterolemia 01/21/2017 Type 2 diabetes mellitus wit hout complication, without long-term current use of insulin 01/21/2017 Social History Tobacco Use Types Packs/Day Years [...] on file Legal Sex Female 7:21 PM ELECTRONIC HEALTH RECORDS SPECIALIST Gender Identity Not on file Sexual Orientation Not on file Last Filed Vital Signs Vital Sign Reading Time Taken Comments Blood Pressure 142/80 03/20/2023 2:53 PM ELECTRONIC HEALTH RECORDS SPECIALIST Pulse 75 03/20/2023 2:53 PM ELECTRONIC HEALTH RECORDS SPECIALIST Temperature 36.7 C (98.1 F) 09/07/2021 7:47 AM CDT Respiratory Rate 18 09/07/2021 7:47 AM CDT Oxygen Saturation 97% 03/20/2023 2:53 PM ELECTRONIC HEALTH RECORDS SPECIALIST Inhaled Oxygen Concentration - - Weight 83.9 kg (185 lb) 03/20/2023 2:53 PM ELECTRONIC HEALTH RECORDS SPECIALIST Height 162.6 cm (5' 4) 03/20/2023 2:53 PM ELECTRONIC HEALTH RECORDS SPECIALIST Body Mass Index 31.76 03/20/2023 2:53 PM ELECTRONIC HEALTH RECORDS SPECIALIST Plan of Treatment Not on file Medical Devices Implanted Type Area Research Program Manager Device Identifier Shelf Expiration Date Model / Serial / Lot Stent N/A: Heart Procedures Procedure Name Priority Date/Time Associated Diagnosis Comments EGFR Routine 03/13/2023 9:02 AM ELECTRONIC HEALTH RECORDS SPECIALIST Essential hypertension HEMOGLOBIN A1C Routine 03/13/2023 9:02 AM ELECTRONIC HEALTH RECORDS SPECIALIST Type 2 diabetes mellitus without complication, without long-term current use of insulin (HCC) LIPID PANEL Routine 03/13/2023 9:02 AM ELECTRONIC HEALTH RECORDS SPECIALIST Mixed hyperlipidemia ALBUMIN CREATININE RATIO, URINE Routine 12/11/2021 9:12 AM CDT from Last 3 Months or Most Recently Relevant to Health Maintenance Results * eGFR (03/13/2023 9:02 AM ELECTRONIC HEALTH RECORDS SPECIALIST) eGFR 49 mL/min/1. 73 m2 JIMENEZ WEBSTER [...] of Race in Diagnosing Kidney Disease, JASN 202). The CKD-EPI equation should not be used for patients with unstable renal function and has not been validated in children and those over 70. Current interpretive data was last reviewed 2021. Testing performed by: [address] [address] Blood 03/13/2023 9:02 AM ELECTRONIC HEALTH RECORDS SPECIALIST 03/13/2023 9:29 AM ELECTRONIC HEALTH RECORDS SPECIALIST us Ambrocio Martínez MD LAB BLOOD ORDERABLES [facility] Result JIMENEZ [address] [facility] Department [place] [address] * (ABNORMAL) Hemoglobin A1c (03/13/2023 9:02 AM ELECTRONIC HEALTH RECORDS SPECIALIST) [facility] Hgb A1C 10.3(H) 4.0 - 5.6 % JIMENEZ Comment:Testing performed by : [address] [address] Estimated Average Glucose 249 mg/dL JIMENEZ Comment: The ADA recommends reporting an estimated Average Glucose (eAG) with all Hemoglobin A1c results using the equation derived from a study of 507 normal and diabetic adults. Minority populations were underrepresented and children were not included. (Diabetes Care 31:9391-9140, 2008). The eAG is not equivalent to a fasting glucose. Testing performed by: [address] [address] Blood 03/13/2023 9:02 AM ELECTRONIC HEALTH RECORDS SPECIALIST 03/13/2023 9:29 AM ELECTRONIC HEALTH RECORDS SPECIALIST us Ambrocio Martínez MD LAB BLOOD ORDERABLES Fi nal Result JIMENEZ [address] [facility] Department of Laboratories [place], [place] [id number] * (ABNORMAL) Lipid panel (03/13/2023 9:02 AM ELECTRONIC HEALTH RECORDS SPECIALIST) Cholesterol 132 30 - 199 mg/dL JIMENEZ [...] last revised on 2017. Testing performed by: [address] [address] Triglycerides 382(H) <=149 mg/dL JIMENEZ Comment: Interpretive [...] last revised on 2017. Testing performed by: [address] [address] HDL 37(L) >=40 mg/dL JIMENEZ Comment: Interpretive [...] last revised on 2017. Testing performed by: [address] [address] LDL, calculated 19 <=129 mg/dL JIMENEZ Comment: [...] last revised on 2017. Testing performed by: [address] [address] Non-HDL Cholesterol 95 mg/dL JIMENEZ Comment: Interpretive [...] last revised on 2017. Testing performed by: [address] [address] Chol/HDL ratio 4 JIMENEZ Comment:Testing performed by : [address] [address] Blood 03/13/2023 9:02 AM ELECTRONIC HEALTH RECORDS SPECIALIST 03/13/2023 9:29 AM ELECTRONIC HEALTH RECORDS SPECIALIST Narrative JIMENEZ - 03/13/2023 10:18 AM ELECTRONIC HEALTH RECORDS SPECIALIST Has the patient been fasting for 8 hours or more?->Yes us Ambrocio Martínez MD LAB BLOOD ORDERABLES Fi nal Result Performing Organization Address [facility] Co de Phone Number JIMENEZ [address] [place] [address] * Albumin Creatinine Ratio, Urine (12/11/2021 9:12 AM CDT) Albumin Ur <12.0 mg/L JIMENEZ Comment: Interpretive Data No reference range established. Current interpretive data was last revised 2018. Testing performed by: [address] [address] Creatinine Ur 62.9 mg/dL JIMENEZ Comment: Interpretive Data No reference range established. Current interpretive data was last revised 2018. Testing performed by: [address] [address] Albumin Creatinine Ratio, Ur <19 1 - 29 mg/g JIMENEZ Comment:Testing performed by : [address] [address] Urine 12/11/2021 9:12 AM CDT 12/11/2021 9:22 AM CDT us Ava Landaverde APRN LAB URINE ORDERABLES Joanne l Result Performing Organization Address [facility] Co de Phone Number JIMENEZ [address] [facility] [place] [address] from Last 3 Months or Most Recently Relevant to Health Maintenance Insurance [employer] MEDICARE [facility] MEDICARE UHC MEDICARE ADVANTAGE [facility] MEDICARE Advance Directives For more information, please contact: [phone] * Full Code (Latest Code Status on File) Date Activated Date Inactivated Comments 09/05/2021 5:51 PM 09/07/2021 1:11 PM Healthcare Agents on File Name Relationship Healthcare Agent [facility] Communication Gerry Jo Spouse Health Care Agent Care Teams Dry Heat Cabinet Attendant Relationship Specialty Start Date End Date Essence Burciaga NP [address] [place], [place] [id number] PCP - General Nurse Practitioner 08/19/20 Cely Garsia DO [address] [place] [address] Consulting Physician Obstetrics and Gynecology 09/07/21
--- OUTSIDE RECORDS SUMMARY | 2024-09-21 08:44 | XMS_ITS | Encounter Summary ---
Author Organization [facility] Care Team Providers Care Woodyard Operator Name Role Phone Nevaeh Benitez MD Primary Care Provider [phone] Essence Burciaga NP Primary Care Provider [phone] Cely Garsia DO Unavailable [phone] Encounter Details Date Type Department Care Team (Latest Contact Info) Description 01/15/2017 Orders Only [facility] CLINCONV Provider, MD Stacey [address] [place] [address] Social History Tobacco Use Types Packs/Day Years Used Date Smoking Tobacco: Never Assessed Comments Unknown Sex and Gender Information Value Date Recorded Sex Assigned at Not on file Legal Sex Female 7: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 us Historical Provider MD [facility] CARDIAC SERVICES PROCE DURES Final Result * CARDIOLOGY REPORT (01/21/2017 12:00 AM CDT) Anatomical Region Laterality Modality Other Narrative 01/21/2017 12:00 AM CDT Ordered by an unspecified provider. Historical Provider MD CV CARDIAC SERVICES PROCE DURES Final Result * CARDIOLOGY REPORT (01/21/2017 12:00 AM CDT) Anatomical Region Laterality Modality Other Narrative 01/21/2017 12:00 AM CDT Ordered by an unspecified provider. Historical Provider CV CARDIAC SERVICES PROCE DURES Final Result documented in this encounter Visit Diagnoses Not on filedocumented in this encounter Care Teams Woodyard Operator Relationship Specialty Start Date End Date Nevaeh Benitez MD [address] [place] [address] PCP - General 09/16/18 08/18/20 Essence Burciaga NP [address] [place] [address] PCP - General Nurse Practitioner 08/19/20 Cely Garsia DO [address] [place] [address] Consulting Physician Obstetrics and Gynecology 09/07/21 documented as of this encounter
[2024-09-21 09:43] LABS: Free T4 Free Thyroxine 1.12 ng/dL (0.78-2.19)
[2024-09-21 09:47] LABS: Creatinine Urine 34.1 mg/dL; LDL Cholesterol Direct 67 mg/dL
[2024-09-21 09:49] LABS: Alanine Aminotransferase 18 U/L (6-35); Albumin Level 4.3 g/dL (3.5-5.1); Alkaline Phosphatase 60 U/L (38-126); Anion Gap 6 mmol/L (4-12); Aspartate Amino Transferase 26 U/L (14-36); Bilirubin,Total 0.7 mg/dL (0.2-1.3); Blood Urea Nitrogen 26 mg/dL (7-17); Calcium 9.6 mg/dL (8.4-10.2); Carbon Dioxide 30 mmol/L (22-30); Chloride 103 mmol/L (98-107); Cholesterol 160 mg/dL (0-200); Estimated Glomerular Filt Rate 45; Glucose 129 mg/dL (65-110); HDL Direct 39 mg/dL; Potassium 4.6 mmol/L (3.4-5.0); Sodium 139 mmol/L (137-145); Triglycerides 267 mg/dL (<150)
[2024-09-21 09:53] LABS: MALB Creatinine Ratio < 17.6 mg/g (0-30); Microalbumin Urine Random < 6.0 mg/L (0-16.7)
== END 2024-09-21 08:29 | disposition home or self-care (01) ==
LOC: ANHLAB 08:30
PROVIDERS: Visit Provider Nurse Practitioner Family
DX: E78.5 Hyperlipidemia, unspecified (principal); E11.9 Type 2 diabetes mellitus without complications; G62.9 Polyneuropathy, unspecified
CPT/HCPCS: 36415; 80053; 80061; 82043; 84439; 84443